=== PATIENT | female | born 1965 | race Caucasian/White ===

== ENCOUNTER 2020-01-18 00:12 | Day surgery (SDC) | payer BC, SELFPAY ==
[2020-01-12 15:18] VITALS: BMI 31.5
[2020-01-18 06:59] VITALS: BP 129/92; PULSE 70; RESP 16; TEMP 36.3; O2SAT 97
--- NOTE | 2020-01-18 07:01 | WPDANESEPPF ---
Anes - Initial Pre Proc Eval Procedure: Operation Date: 01/18/20 07:30 Proposed Procedures p Screening Colonoscopy - Roberto Whitfield MD Date/Time: 01/18/20 07:01 Surgeon: Roberto Whitfield MD Pre Op Diagnosis: Neoplasm Screening Patient Data Age: 54 Gender: F Height: 5 ft 5 in Weight: 87 kg Last Vital Signs Temp 97.4 F L 01/18/20 06:59 Pulse 70 01/18/20 06:59 Resp 16 01/18/20 06:59 BP 129/92 H 01/18/20 06:59 Pulse Ox 97 01/18/20 06:59 Allergies Allergy/AdvReac Type Severity Reaction Status Date / Time No Known Allergies Allergy Verified 01/18/20 06:58 Home Medications Medication Instructions Recorded Confirmed Type No Home Medications 01/12/20 01/12/20 History Patient hx anesthesia problems: none Family hx anesthesia problems: none PMFSH Past Medical History Medical History (Updated 01/17/20 @ 10:09 by Nomi Nathan MD) Anemia Social History Social History Smoking status: Never smoker Alcohol intake: current Anes - Eval Final PreProcedure Day of Procedure 01/18/20 07:01 Patient weight: overweight Heart: regular rate and rhythm Lungs: clear to auscultation Airway: Mallampati scale class II Neurological: alert and oriented Last oral intake: >/= 8 hours ASA classification: II Emergent: no Anesthetic plan: proceed Anesthesia type and monitoring: general GIVS and standard monitoring Informed Consent: The patient's anesthetic plan and its attendant risks and benefits were discussed with the patient/family/POA. Questions were solicited and answers provided to the satisfaction of the patient/family/POA.
[2020-01-18] MEDS: LACTATED RINGERS 1,000 ML 150 ML IV CONT (07:07)
--- NOTE | 2020-01-18 07:07 | P.HP_ITS ---
History of Present Illness History of Present Illness Consent: Risks, benefits, and alternatives have been discussed and questions answered. Patient agrees to proceed with procedure. Chief complaint: Neoplasm Screening Narrative: Carmelita Villar is a 54 year old W female Referred for her 1st screening colonoscopy. Patient is asymptomatic. There is no family history of colon cancer her father had prostate cancer. [facility] Past Medical History Medical History Anemia Surgical History Surgical History (Updated 01/18/20 @ 07:08 by Roberto Whitfield MD) Status post D&C Status post tonsillectomy and adenoidectomy Family History Family History Grandparent Diabetes mellitus Cerebrovascular accident Father Family history of multiple sclerosis Family history of cardiovascular disease Acute myocardial infarction Malignant neoplasm of prostate Social History Social History Smoking status: Never smoker Alcohol intake: current Meds Home Medications and Allergies Home Medications Medication Instructions Recorded Confirmed Type No Home Medications 01/12/20 01/12/20 History Allergies Allergy/AdvReac Type Severity Reaction Status Date / Time No Known Allergies Allergy Verified 01/18/20 06:58 Vital Signs Vital Signs - 24 hr 01/18/20 06:59 Temperature 36.3 C L Pulse Rate 70 Respiratory Rate 16 Blood Pressure 129/92 H Pulse Oximetry 97 Exam Const: Orientation/consciousness: patient oriented x3 Resp: Auscultation: clear to auscultation bilaterally Cardio: Rate: regular rate Rhythm: regular rhythm Heart sounds: no murmurs GI: GI Palp: Yes Soft to palpation, No Tenderness to palpation present (GI), Yes No hepatosplenomegaly present and No Palpable mass present Auscultation: normal bowel sounds Neuro: General: patient oriented x3 and no focal motor deficits Extrem: General: no pedal edema Assessment and Plan Additional Plan screening colonoscopy in average risk patient
[2020-01-18 07:49] VITALS: BP 94/45; PULSE 72; RESP 14; O2SAT 98
[2020-01-18 07:59] VITALS: BP 110/63; PULSE 70; RESP 14; O2SAT 98
[2020-01-18 08:09] VITALS: BP 121/65; PULSE 69; RESP 14; O2SAT 100
== END 2020-01-18 08:17 | disposition home or self-care (01) ==
PROVIDERS: PCP Family Medicine; Visit Provider Internal Medicine Gastroenterology
PROC: 0DJD8ZZ Inspection of Lower Intestinal Tract, Via Natural or Artificial Opening Endoscopic (ICD-10-PCS; CPT 45378; principal; 2020-01-18 07:30)
DX: Z12.11 Encounter for screening for malignant neoplasm of colon (principal); K57.30 Diverticulosis of large intestine without perforation or abscess without bleeding
CPT/HCPCS: 45378; J2001; J2704; J7120

== ENCOUNTER 2024-07-04 12:45 | Outpatient (CLI) | payer OTHER, SELFPAY ==
--- NOTE | ~2024-07-04 | MM_ITS ---
EXAMINATION: MM screening vangie BI w lili HISTORY: Screening TECHNIQUE: Craniocaudal and mediolateral oblique 3-D tomosynthesis images were obtained and synthetic 2-D images were generated. CAD analysis was submitted and interpreted. COMPARISON..: 04/10/2016 BREAST PARENCHYMAL COMPOSITION: Not dense: There are scattered areas of fibroglandular density. FINDINGS: There is no evidence of suspicious mass, calcification, or architectural distortion to sugg est malignancy in either breast. There has been no suspicious interval change. IMPRESSION: 1. No mammographic evidence of malignancy. 2. Recommend routine screening mammography in one year. BI-RADS Category 1: Negative Reviewed, dictated and finalized at location B.
== END 2024-07-04 12:46 | disposition home or self-care (01) ==
LOC: ANHIMG 12:46
PROVIDERS: PCP Family Medicine; Visit Provider Family Medicine
DX: Z12.31 Encounter for screening mammogram for malignant neoplasm of breast (principal)
CPT/HCPCS: 77063; 77067